=== PATIENT | male | born 1980 | race Caucasian/White ===

== ENCOUNTER 2021-03-17 10:50 | Emergency (ER) | payer OTHER, SELFPAY ==
[2021-03-17] VITALS (9 sets, daily range): BP systolic 109–143; BP diastolic 71–118; PULSE 73–78; RESP 14–20; O2SAT 92–99
--- NOTE | ~2021-03-17 | XR_ITS ---
XR chest 2V 03/17/2021 11:57 Indication: Chest pain Procedure: 2 view chest Comparison: No prior studies for comparison Findings: There are prominent bilateral nipple shadows. Heart size normal. No focal air space disease , pulmonary edema, pleural effusion or suspected pneumothorax. No acute osseous abnormality. Impression: 1: No acute cardiopulmonary disease. Reviewed, dictated and finalized at location B. N ENERGY MARKETING ANALYST Impression: 1: No acute cardiopulmonary disease.
--- NOTE | ~2021-03-17 | XR_ITS ---
EXAMINATION: XR finger 3rd RT min 2V DATE: 03/17/2021 11:56 INDICATION: Right third finger macerated with metal presenting with swelling and infection TECHNIQUE: Dorsal palmar, lateral and oblique views of the right third digit were obtained COMPARISON: None FINDINGS: And skin laceration is seen at the dorsal/radial aspect of the third digit at the level of the distal interphalangeal joint. Bone alignment is normal. No fracture. No cortical erosions or periosteal williams ction to suggest ostomy myelitis. Joint spaces are normal. Diffuse soft tissue swelling throughout th e third digit greatest at the middle and distal phalanges. Mild soft tissue swelling throughout the s econd digit. No radiopaque foreign bodies or soft tissue gas. IMPRESSION: 1. No osseous abnormality. Reviewed, dictated and finalized at location A. BOTOMY TECHNICIAN IMPRESSION: 1. No osseous abnormality.
--- NOTE | 2021-03-17 11:03 | ED.EXTPRO ---
HPI - Extremity Problem General Chief complaint: Extremity Problem,Nontraumatic Stated complaint: infected finger Time Seen by Provider: 03/17/21 11:03 Source: patient Mode of arrival: ambulatory Limitations: no limitations History of Present Illness HPI Narrative: Patient is a 40-year-old male with a history of opiate abuse now on saboxone, methamphetamine use, presenting to the emergency department for evaluation of chest pain and right third finger pain. Patient states his chest pain began this morning, prior to his arrival. Pain is dull, aching in the center of his chest with radiation to the neck bilaterally. Patient denies jaw or shoulder pain. He denies back pain or flank pain. No ripping or tearing sensation to the pain. No focal weakness or numbness. Patient also states that he has severe, throbbing finger pain to the right third digit that has been present and worsening over the past week. 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 Patient states that he usually does not seek any care for his injuries. Patient reports redness, swelling throughout the entire third digit, pain, decrease in range of motion over the past week. Patient denies fever or chills. Patient states he feels more fatigued than normal. He denies abdominal pain, nausea, vomiting, lightheadedness. Patient is right-hand dominant. He denies history of skin infection in the past. Related Data Allergies Allergy/AdvReac Type Severity Reaction Status Date / Time No Known Allergies Allergy Verified 03/17/21 11:05 Review of Systems Review of Systems: CONSTITUTIONAL: Denies fever, chills, or sweats. EYES: Denies visual changes, redness, or discharge. ENT: Denies rhinorrhea, congestion, sore throat, or otalgia. CARDIOVASCULAR: Reports chest pain without palpitations or lower extremity edema RESPIRATORY: Denies cough or dyspnea. GASTROINTESTINAL: Denies abdominal pain, nausea, vomiting, or diarrhea. GENITOURINARY: Denies dysuria or hematuria. SKIN: Denies rash or itching. MUSCULOSKELETAL: Denies back pain. Reports right third digit pain, swelling, redness, decreased movement. NEUROLOGIC: Denies headache, numbness, or weakness. [facility] Past Medical History Medical History (Updated 03/17/21 @ 13:10 by Salima Rodriguez MD) Opiate abuse, episodic Social History Social History (Updated 03/17/21 @ 11:34 by Salima Rodriguez MD) Smoking status: Current every day smoker Tobacco type: cigarettes Alcohol intake: former Alcohol use details: Cessation 10 years ago Substance use: current Substance use type: amphetamines Other substance usage details: Patient reports 2 months abstinence from opiates Gender identity (if verbalized by the patient): Male Exam Narrative: GENERAL: Awake, alert, conversant, thin HEAD: Normocephalic, atraumatic. EYES: PERRLA and EOMI. ENT: Nares clear, no rhinorrhea or epistaxis. Mucous membranes moist. NECK: Supple. CHEST: No respiratory distress, breathing even and non labored HEART: Regular rate, sinus rhythm ABDOMEN:Non distended, non tender EXTREMITIES: Right hand: Right third digit is indurated, edematous, erythematous. Patient cannot do any active flexion, the finger remains in extension. There is a wound with purulent discharge overlying the middle phalanx. Radial pulses 2+. Intact sensation median, ulnar, radial nerve distribution. There is also a excoriated wound, with scabbing overlying the medial aspect of the right forearm. No abscess. SKIN: Warm, dry, no rash. NEURO:No focal deficits. Alert and oriented x3 Course Vital Signs Vital signs: Vital Signs Pulse Rate 78 03/17/21 10:53 Respiratory Rate 17 03/17/21 10:53 Blood Pressure 143/118 H 03/17/21 10:53 Pulse Oximetry 99 03/17/21
--- NOTE | 2021-03-17 11:26 | ECG_ITS ---
Measurements Intervals [place] Rate: 74 P: 33 RI: 113 QRS: 79 QRSD: 106 T: 69 QT: 398 QTc: 443 Interpretive Statements SINUS RHYTHM WITH SHORT RI INTERVAL MINIMAL Q WAVES- INF/LAT LEADS BASELINE ARTIFACT- I, II, III BORDERLINE ECG Electronically Signed On 03-17-2021 11:44:24 COLLECTION SYSTEMS ADMINISTRATOR by Rahul De León D.O.
[2021-03-17 11:54] LABS: Basophils Absolute Auto 0.1 K/mm3 (0.0-0.1); Basophils Percent Auto 0.6 % (0.2-1.2); Eosinophils Absolute Auto 0.1 K/mm3 (0-0.3); Eosinophils Percent Auto 1.3 % (0-4.4); Hemoglobin 10.6 g/dL (14.0-18.0); Immature Granulocyte Absolute 0.03 K/mm3 (0.00-0.031); Immature Granulocyte Percent A 0.3 % (0-0.5); Lymphocytes Absolute Auto 1.27 K/mm3 (0.9-3.2); Lymphocytes Percent Auto 14.2 % (18.3-44.2); Mean Corpuscular HGB Conc 33.1 g/dl (32-36); Mean Corpuscular Hemoglobin 29.1 pg (26-34); Mean Corpuscular Volume 87.9 fl (80-100); Mean Platelet Volume 9.1 fl (7.4-10.4); Monocytes Absolute Auto 1.4 K/mm3 (0.1-0.6); Monocytes Percent Auto 15.7 % (2.6-8.5); Neutrophils Absolute Auto 6.1 K/mm3 (1.3-6.7); Neutrophils Percent Auto 67.9 % (45.5-73.1); Platelet Count Result 279 k/mm3 (150-375); Red Blood Count 3.64 M/mm3 (4.6-6.20); Red Cell Distribution Width 15.9 % (11.5-14.5); White Blood Count 8.9 K/mm3 (4.5-10.0)
--- NOTE | 2021-03-17 12:01 | PC.NURSE ---
called Lab and spoke to Lizzie about [id number] add on bloodwork.
[2021-03-17 12:05] LABS: Anion Gap 8 mmol/L (8-16); Blood Urea Nitrogen 18 mg/dL (9-20); CRP 4.3 mg/dL (<1.0); Calcium 9.1 mg/dL (8.4-10.2); Carbon Dioxide 30 mmol/L (22-30); Chloride 97 mmol/L (98-107); Estimated CRCL calculation 103 ml/min; Estimated Glomerular Filt Rate > 60; Glucose 124 mg/dL (65-110); Potassium 3.7 mmol/L (3.4-5.0); Sodium 135 mmol/L (137-145)
[2021-03-17 12:10] LABS: Prothrombin Time 12.6 Seconds (11.1-14.7)
[2021-03-17 12:11] LABS: Partial Thromboplastin Time 31.9 SECONDS (22.3-36.8)
[2021-03-17 12:16] LABS: Troponin I < 0.012 ng/mL (0.000-0.034)
[2021-03-17] MEDS: ASPIRIN 81 MG CHEWABLE TABLET 324 MG PO (12:20)
[2021-03-17 12:53] LABS: Erythrocyte Sedimentation Rate 67 mm/hr (0-20)
[2021-03-17] MEDS: oxyCODONE HCL (*CRX) 5 MG TAB IR PO (13:33)
[2021-03-17] MEDS: TETANUS,DIPHTHERIA,AC PERTUSSIS ADULT (0.5 ML) BOOSTRIX IM (13:33)
[2021-03-17 14:47] LABS: HIV 1/2 Ab P24 Ag Result Negative (Negative)
== END 2021-03-17 13:50 | disposition short-term general hospital (02) ==
PROVIDERS: Emergency Provider Emergency Medicine
DX: S61.212A Laceration without foreign body of right middle finger without damage to nail, initial encounter (principal); L08.9 Local infection of the skin and subcutaneous tissue, unspecified; M25.541 Pain in joints of right hand; R07.89 Other chest pain; F15.10 Other stimulant abuse, uncomplicated; F17.210 Nicotine dependence, cigarettes, uncomplicated; Z23 Encounter for immunization; W26.8XXA Contact with other sharp object(s), not elsewhere classified, initial encounter
CPT/HCPCS: 36415; 71046; 73140; 80048; 84484; 85025; 85610; 85652; 85730; 86140; 86703; 90471; 90715; 93005; 96365; 99285; A9270; G0432; J3370

== ENCOUNTER 2022-04-05 08:16 | Outpatient (CLI) | payer OTHER, SELFPAY ==
--- NOTE | ~2022-04-05 | US_ITS ---
EXAMINATION: US aorta DATE: 04/05/2022 08:52 INDICATION: Aortic aneurysm TECHNIQUE: Grayscale, color Doppler, and pulsed Doppler images of the aorta and common iliac arteries were obtained. COMPARISON: None. FINDINGS: Maximum vascular dimensions are as follows: Proximal aorta: 2.5 cm Mid aorta: 1.9 cm Distal aorta: 1.6 cm Aortic bifurcation is obscured and not clearly visualized. There is no evidence of abdominal aortic aneurysm. IMPRESSION: No evidence of aortic aneurysm. Reviewed, dictated and finalized at location M. EL ENGINE PIPE FITTER
== END 2022-04-05 08:17 | disposition home or self-care (01) ==
DX: I71.9 Aortic aneurysm of unspecified site, without rupture (principal)
CPT/HCPCS: 76775